=== PATIENT | female | born 1945 | race Caucasian/White ===

== ENCOUNTER 2020-10-11 09:31 | Inpatient (IN) | payer OTHER ==
[2020-10-11 10:36] LABS: BASO % 0.7 % (0-2.0); EOS % 0.9 % (0-4.5); HEMATOCRIT 30.6 % (32.4-45.2); HEMOGLOBIN 10.5 GM/dl (10.7-15.3); LYMPH % 12.3 % (8-40); MCH 30.4 pg (25.7-33.7); MCHC 34.3 g/dl (32.0-36.0); MEAN CELL VOLUME 88.6 fl (80-96); MONO % 5.6 % (3.8-10.2); NEUT % 80.5 % (42.8-82.8); PLATELET COUNT 264 10^3/uL (134-434); RBC 3.45 M/mm3 (3.60-5.2); RDW 13.1 % (11.6-15.6); WHITE BLOOD COUNT 13.4 K/mm3 (4.0-10.8)
[2020-10-11 11:04] LABS: ACTIVATED PTT 23.5 SECONDS (25.2-36.5); ALBUMIN 3.5 g/dl (3.4-5.0); BILIRUBIN,TOTAL 0.7 mg/dl (0.2-1); CREATININE 0.8 mg/dl (0.55-1.3); TOT PROT 6.6 g/dl (6.4-8.2)
[2020-10-11 11:08] LABS: INR 0.96 (0.82-1.09); PROTHROMBIN TIME (PATIENT) 10.8 SEC (10.2-13.0)
[2020-10-11] MEDS ORDERED: SODIUM CHLORIDE 0.9% 1000 ML INFUS.BAG IV ONE (11:47)
[2020-10-11] MEDS ORDERED: SODIUM CHLORIDE 1,000 ML IV SCH (15:00)
[2020-10-11] MEDS ORDERED: SODIUM CHLORIDE 500 ML IV STA (15:18)
[2020-10-11 16:45] VITALS: BMI 18.6
[2020-10-11] MEDS: INSULIN SLIDING SCALE (NOVOLOG) 1 VIAL SQ SCH ×2 (17:10→21:13)
[2020-10-12] MEDS: INSULIN SLIDING SCALE (NOVOLOG) 1 VIAL SQ SCH ×4 (06:23→22:14)
[2020-10-12 08:18] LABS: EOS % 0.7 % (0-4.5); HEMATOCRIT 17.9 % (32.4-45.2); LYMPH % 16.5 % (8-40); MCH 29.7 pg (25.7-33.7); MCHC 33.5 g/dl (32.0-36.0); MEAN CELL VOLUME 88.8 fl (80-96); MEAN PLT VOLUME 7.9 fl (7.5-11.1); MONO % 6.5 % (3.8-10.2); NEUT % 75.3 % (42.8-82.8); PLATELET COUNT 225 10^3/uL (134-434); RBC 2.01 M/mm3 (3.60-5.2); RDW 13.4 % (11.6-15.6); WHITE BLOOD COUNT 8.8 K/mm3 (4.0-10.8)
[2020-10-12 08:20] LABS: ALBUMIN 2.6 g/dl (3.4-5.0); BILIRUBIN,TOTAL 0.6 mg/dl (0.2-1); CALCIUM 7.9 mg/dl (8.5-10); CREATININE 0.7 mg/dl (0.55-1.3); MAGNESIUM 1.7 mg/dL (1.8-2.4); TOT PROT 4.7 g/dl (6.4-8.2)
[2020-10-12] MEDS ORDERED: MAGNESIUM SULF 50% (8.12 MEQ/2 ML-1 GM VIAL) IVPB ONE (09:42)
[2020-10-12] MEDS ORDERED: MAGNESIUM SULFATE IN WATER 2 GM/50 ML IVPB IVPB ONE (10:00)
[2020-10-12] MEDS ORDERED: LOSARTAN POTASSIUM 50 MG TABLET PO SCH (10:00)
[2020-10-12] MEDS ORDERED: PANTOPRAZOLE SODIUM 80 MG in SODIUM CHLORIDE 100 ML IVPB SCH (11:30)
[2020-10-12] MEDS ORDERED: SODIUM CHLORIDE 1,000 ML IV SCH (15:43)
[2020-10-12] MEDS ORDERED: ACETAMINOPHEN 325 MG TABLET (FP) PO PRN (16:08)
[2020-10-12] MEDS ORDERED: ACETAMINOPHEN 1000 MG/100 ML VIAL (NON FORMULARY) IVPB PRN (17:52)
[2020-10-12 18:34] LABS: BASO % 0.4 % (0-2.0); EOS % 0.2 % (0-4.5); HEMATOCRIT 19.9 % (32.4-45.2); MCHC 33.5 g/dl (32.0-36.0); MEAN CELL VOLUME 89.5 fl (80-96); MEAN PLT VOLUME 7.9 fl (7.5-11.1); MONO % 8.3 % (3.8-10.2); NEUT % 76.1 % (42.8-82.8); PLATELET COUNT 193 10^3/uL (134-434); RBC 2.22 M/mm3 (3.60-5.2); RDW 13.5 % (11.6-15.6); WHITE BLOOD COUNT 13.1 K/mm3 (4.0-10.0)
[2020-10-12 18:48] LABS: HEMOGLOBIN 6.7 GM/dL (10.7-15.3)
[2020-10-12] MEDS ORDERED: ACETAMINOPHEN 1000 MG/100 ML VIAL (NON FORMULARY) IVPB ONE (19:27)
[2020-10-12] MEDS: SODIUM CHLORIDE 1,000 ML IV SCH (20:16)
[2020-10-12 21:44] LABS: BASO % 0.3 % (0-2.0); EOS % 0.2 % (0-4.5); HEMATOCRIT 18.2 % (32.4-45.2); LYMPH % 16.7 % (8-40); MCHC 33.3 g/dl (32.0-36.0); MEAN CELL VOLUME 89.9 fl (80-96); MONO % 8.8 % (3.8-10.2); PLATELET COUNT 206 10^3/uL (134-434); RBC 2.03 M/mm3 (3.60-5.2); RDW 13.7 % (11.6-15.6)
[2020-10-12 21:49] LABS: HEMOGLOBIN 6.1 GM/dL (10.7-15.3)
[2020-10-12 21:53] LABS: INR 1.03 (0.83-1.09); PROTHROMBIN TIME (PATIENT) 12.6 SEC (9.7-13.0)
[2020-10-12 21:56] LABS: ACTIVATED PTT 22.8 SECONDS (25.2-36.5)
[2020-10-12] MEDS: PANTOPRAZOLE SODIUM 40 MG VIAL IVPUSH SCH (22:14)
[2020-10-13] MEDS ORDERED: ACETAMINOPHEN 1000 MG/100 ML VIAL (NON FORMULARY) IVPB PRN (01:30)
[2020-10-13] MEDS: INSULIN SLIDING SCALE (NOVOLOG) 1 VIAL SQ SCH ×3 (06:19→18:17)
[2020-10-13 06:31] LABS: URINE APPEARANCE CLEAR; URINE BILIRUBIN NEGATIVE (NEGATIVE); URINE COLOR YELLOW; URINE GLUCOSE (UA) 3+ (NEGATIVE); URINE KETONE 2+ (NEGATIVE); URINE LEUK ESTERASE NEGATIVE (NEGATIVE); URINE NITRITE NEGATIVE (NEGATIVE); URINE PROTEIN NEGATIVE (NEGATIVE)
[2020-10-13 07:19] LABS: BASO % 0.3 % (0-2.0); EOS % 0.5 % (0-4.5); HEMATOCRIT 25.9 % (32.4-45.2); HEMOGLOBIN 8.8 GM/dL (10.7-15.3); LYMPH % 16.2 % (8-40); MCH 29.6 pg (25.7-33.7); MEAN CELL VOLUME 87.2 fl (80-96); MEAN PLT VOLUME 7.8 fl (7.5-11.1); MONO % 10.6 % (3.8-10.2); NEUT % 72.4 % (42.8-82.8); PLATELET COUNT 164 10^3/uL (134-434); RBC 2.97 M/mm3 (3.60-5.2); RDW 14.7 % (11.6-15.6); WHITE BLOOD COUNT 12.7 K/mm3 (4.0-10.0)
[2020-10-13] MEDS: PANTOPRAZOLE SODIUM 40 MG VIAL IVPUSH SCH (10:24)
[2020-10-13 15:17] LABS: BASO % 0.4 % (0-2.0); EOS % 0.2 % (0-4.5); HEMATOCRIT 23.5 % (32.4-45.2); HEMOGLOBIN 7.7 GM/dL (10.7-15.3); MCH 28.8 pg (25.7-33.7); MCHC 32.8 g/dl (32.0-36.0); MEAN CELL VOLUME 87.7 fl (80-96); MEAN PLT VOLUME 8.6 fl (7.5-11.1); MONO % 6.9 % (3.8-10.2); NEUT % 80.5 % (42.8-82.8); PLATELET COUNT 182 10^3/uL (134-434); RBC 2.68 M/mm3 (3.60-5.2); RDW 15.3 % (11.6-15.6); WHITE BLOOD COUNT 15.4 K/mm3 (4.0-10.0)
[2020-10-13] MEDS: SODIUM CHLORIDE 1,000 ML IV SCH (18:15)
[2020-10-13 18:57] LABS: BASO % 0.3 % (0-2.0); EOS % 0.2 % (0-4.5); HEMOGLOBIN 7.4 GM/dL (10.7-15.3); LYMPH % 15.5 % (8-40); MCH 29.2 pg (25.7-33.7); MCHC 33.6 g/dl (32.0-36.0); MEAN PLT VOLUME 8.1 fl (7.5-11.1); MONO % 6.9 % (3.8-10.2); NEUT % 77.1 % (42.8-82.8); PLATELET COUNT 184 10^3/uL (134-434); RBC 2.53 M/mm3 (3.60-5.2); RDW 15.2 % (11.6-15.6); WHITE BLOOD COUNT 15.4 K/mm3 (4.0-10.0)
[2020-10-13 21:42] LABS: HEMATOCRIT 19.5 % (32.4-45.2); MCH 29.6 pg (25.7-33.7); MCHC 34.2 g/dl (32.0-36.0); MEAN CELL VOLUME 86.6 fl (80-96); MEAN PLT VOLUME 7.9 fl (7.5-11.1); PLATELET COUNT 161 10^3/uL (134-434); RBC 2.26 M/mm3 (3.60-5.2); RDW 15.3 % (11.6-15.6); WHITE BLOOD COUNT 13.9 K/mm3 (4.0-10.0)
[2020-10-13 21:52] LABS: HEMOGLOBIN 6.7 GM/dL (10.7-15.3)
[2020-10-14] MEDS: SODIUM CHLORIDE 1,000 ML IV SCH ×2 (05:38→16:00)
[2020-10-14] MEDS: INSULIN SLIDING SCALE (NOVOLOG) 1 VIAL SQ SCH ×3 (06:14→16:58)
[2020-10-14 07:07] LABS: BASO % 0.4 % (0-2.0); HEMATOCRIT 22.1 % (32.4-45.2); HEMOGLOBIN 7.6 GM/dL (10.7-15.3); LYMPH % 21.9 % (8-40); MCHC 34.3 g/dl (32.0-36.0); MEAN CELL VOLUME 87.7 fl (80-96); MEAN PLT VOLUME 7.8 fl (7.5-11.1); MONO % 8.6 % (3.8-10.2); NEUT % 67.1 % (42.8-82.8); PLATELET COUNT 141 10^3/uL (134-434); RBC 2.52 M/mm3 (3.60-5.2); RDW 15.1 % (11.6-15.6); WHITE BLOOD COUNT 11.6 K/mm3 (4.0-10.0)
[2020-10-14 07:24] LABS: CALCIUM 7.8 mg/dL (8.5-10.1)
[2020-10-14 07:26] LABS: ALBUMIN 2.5 g/dl (3.4-5.0); BLOOD UREA NITROGEN 17.7 mg/dL (7-18); MAGNESIUM 1.8 mg/dL (1.8-2.4)
[2020-10-14 07:29] LABS: CREATININE 0.5 mg/dL (0.55-1.3); PHOSPHOROUS 2.3 mg/dL (2.5-4.9)
[2020-10-14 07:30] LABS: BILIRUBIN,TOTAL 0.4 mg/dL (0.2-1); TOT PROT 4.6 g/dl (6.4-8.2)
[2020-10-14] MEDS: PANTOPRAZOLE SODIUM 40 MG VIAL IVPUSH SCH (10:07)
[2020-10-14 12:29] LABS: HEMATOCRIT 22.1 % (32.4-45.2); HEMOGLOBIN 7.5 GM/dL (10.7-15.3); MCHC 34.1 g/dl (32.0-36.0); MEAN CELL VOLUME 88.1 fl (80-96); MEAN PLT VOLUME 7.6 fl (7.5-11.1); PLATELET COUNT 148 10^3/uL (134-434); RBC 2.51 M/mm3 (3.60-5.2); WHITE BLOOD COUNT 11.7 K/mm3 (4.0-10.0)
[2020-10-14] MEDS ORDERED: PEG 3350/NA SULF BICARB CL/KCL 4000 ML SOLN.RECON PO ONE (14:00)
[2020-10-14] MEDS ORDERED: BISACODYL 5 MG TABLET.DR (FP) PO ONE (20:00)
[2020-10-14 21:53] LABS: BASO % 0.5 % (0-2.0); EOS % 2.4 % (0-4.5); HEMATOCRIT 21.8 % (32.4-45.2); HEMOGLOBIN 7.4 GM/dL (10.7-15.3); LYMPH % 22.5 % (8-40); MCH 29.7 pg (25.7-33.7); MEAN CELL VOLUME 87.4 fl (80-96); MEAN PLT VOLUME 7.7 fl (7.5-11.1); MONO % 9.6 % (3.8-10.2); PLATELET COUNT 156 10^3/uL (134-434); RBC 2.49 M/mm3 (3.60-5.2); RDW 14.6 % (11.6-15.6); WHITE BLOOD COUNT 11.1 K/mm3 (4.0-10.0)
[2020-10-15] MEDS: SODIUM CHLORIDE 1,000 ML IV SCH ×2 (06:17→18:16)
[2020-10-15] MEDS: INSULIN SLIDING SCALE (NOVOLOG) 1 VIAL SQ SCH ×3 (06:18→17:29)
[2020-10-15 08:46] LABS: BASO % 0.3 % (0-2.0); EOS % 2.8 % (0-4.5); HEMATOCRIT 21.8 % (32.4-45.2); HEMOGLOBIN 7.8 GM/dL (10.7-15.3); LYMPH % 21.3 % (8-40); MCH 31.2 pg (25.7-33.7); MCHC 35.6 g/dl (32.0-36.0); MEAN CELL VOLUME 87.6 fl (80-96); MEAN PLT VOLUME 7.9 fl (7.5-11.1); MONO % 9.5 % (3.8-10.2); NEUT % 66.1 % (42.8-82.8); PLATELET COUNT 173 10^3/uL (134-434); RBC 2.49 M/mm3 (3.60-5.2); RDW 14.6 % (11.6-15.6); WHITE BLOOD COUNT 9.8 K/mm3 (4.0-10.0)
[2020-10-15 08:53] LABS: INR 1.03 (0.83-1.09); PROTHROMBIN TIME (PATIENT) 12.4 SEC (9.7-13.0)
[2020-10-15 09:11] LABS: ALBUMIN 2.9 g/dl (3.4-5.0); BLOOD UREA NITROGEN 5.5 mg/dL (7-18); CALCIUM 7.9 mg/dL (8.5-10.1)
[2020-10-15 09:12] LABS: MAGNESIUM 1.4 mg/dL (1.8-2.4)
[2020-10-15 09:14] LABS: CREATININE 0.5 mg/dL (0.55-1.3); PHOSPHOROUS 2.2 mg/dL (2.5-4.9)
[2020-10-15 09:15] LABS: BILIRUBIN,TOTAL 0.4 mg/dL (0.2-1); TOT PROT 5.4 g/dl (6.4-8.2)
[2020-10-15] MEDS: PANTOPRAZOLE SODIUM 40 MG VIAL IVPUSH SCH (10:50)
[2020-10-15 14:34] LABS: BASO % 0.4 % (0-2.0); EOS % 1.5 % (0-4.5); HEMATOCRIT 23.8 % (32.4-45.2); HEMOGLOBIN 8.2 GM/dL (10.7-15.3); MCH 30.5 pg (25.7-33.7); MCHC 34.5 g/dl (32.0-36.0); MEAN CELL VOLUME 88.3 fl (80-96); MEAN PLT VOLUME 7.5 fl (7.5-11.1); MONO % 9.4 % (3.8-10.2); NEUT % 70.7 % (42.8-82.8); PLATELET COUNT 201 10^3/uL (134-434); RBC 2.69 M/mm3 (3.60-5.2); RDW 14.8 % (11.6-15.6); WHITE BLOOD COUNT 10.1 K/mm3 (4.0-10.0)
[2020-10-15] MEDS ORDERED: MAGNESIUM SULF 50% (8.12 MEQ/2 ML-1 GM VIAL) IVPB ONE (14:47)
[2020-10-15] MEDS ORDERED: POTASSIUM PHOSPHATE 15 MM in SODIUM CHLORIDE 250 ML IVPB ONE (15:15)
[2020-10-15] MEDS ORDERED: INSULIN (NOVOLOG) ASPART 100 UNITS/ML 10ML VIAL ONE (17:07)
[2020-10-15 19:30] LABS: BASO % 0.2 % (0-2.0); EOS % 1.4 % (0-4.5); HEMATOCRIT 22.7 % (32.4-45.2); HEMOGLOBIN 7.9 GM/dL (10.7-15.3); LYMPH % 21.3 % (8-40); MCH 30.8 pg (25.7-33.7); MCHC 34.6 g/dl (32.0-36.0); MEAN PLT VOLUME 7.8 fl (7.5-11.1); MONO % 8.5 % (3.8-10.2); NEUT % 68.6 % (42.8-82.8); PLATELET COUNT 191 10^3/uL (134-434); RBC 2.55 M/mm3 (3.60-5.2); RDW 14.7 % (11.6-15.6); WHITE BLOOD COUNT 10.2 K/mm3 (4.0-10.0)
[2020-10-16] MEDS: INSULIN SLIDING SCALE (NOVOLOG) 1 VIAL SQ SCH ×2 (06:16→12:07)
[2020-10-16 07:57] LABS: HEMATOCRIT 21.2 % (32.4-45.2); HEMOGLOBIN 7.4 GM/dL (10.7-15.3); MCH 31.2 pg (25.7-33.7); MCHC 34.8 g/dl (32.0-36.0); MEAN CELL VOLUME 89.7 fl (80-96); MEAN PLT VOLUME 8.1 fl (7.5-11.1); PLATELET COUNT 197 10^3/uL (134-434); RBC 2.36 M/mm3 (3.60-5.2); RDW 14.7 % (11.6-15.6); WHITE BLOOD COUNT 9.7 K/mm3 (4.0-10.0)
[2020-10-16 08:11] LABS: CALCIUM 7.8 mg/dL (8.5-10.1)
[2020-10-16 08:12] LABS: ALBUMIN 2.7 g/dl (3.4-5.0); BLOOD UREA NITROGEN 8.2 mg/dL (7-18); MAGNESIUM 1.7 mg/dL (1.8-2.4)
[2020-10-16 08:15] LABS: CREATININE 0.6 mg/dL (0.55-1.3); PHOSPHOROUS 2.9 mg/dL (2.5-4.9)
[2020-10-16 08:17] LABS: BILIRUBIN,TOTAL 0.3 mg/dL (0.2-1); TOT PROT 5.1 g/dl (6.4-8.2)
[2020-10-16 08:56] VITALS: BP 138/73; PULSE 104; TEMP 98.2
[2020-10-16] MEDS: SODIUM CHLORIDE 1,000 ML IV SCH (08:56)
[2020-10-16] MEDS: PANTOPRAZOLE SODIUM 40 MG VIAL IVPUSH SCH (09:37)
[2020-10-16] MEDS ORDERED: LOSARTAN POTASSIUM 50 MG TABLET PO SCH (10:00)
[2020-10-16] MEDS ORDERED: LOSARTAN POTASSIUM 50 MG TABLET PO ONE (10:45)
[2020-10-16] MEDS ORDERED: VACC MRNA IM ONE (12:22)
[2020-10-16] MEDS ORDERED: [UNRECOGNIZED DRUG - OTHER] IM ONE (12:22)
== END 2020-10-16 15:05 | disposition home or self-care (01) | DRG 244 ==
LOC: FER 09:31 → FM/S 13:46 → J6S 10-12 15:14 → J4W 10-12 18:49
PROVIDERS: ADMIT Internal Medicine; ATTEND Internal Medicine
PROC: 30233N1 Transfusion of Nonautologous Red Blood Cells into Peripheral Vein, Percutaneous Approach (ICD-10-PCS; 2020-10-12)
PROC: 0DJD8ZZ Inspection of Lower Intestinal Tract, Via Natural or Artificial Opening Endoscopic (ICD-10-PCS; principal; 2020-10-15 13:15)
DX: K57.91 Diverticulosis of intestine, part unspecified, without perforation or abscess with bleeding (principal); I10 Essential (primary) hypertension; E11.9 Type 2 diabetes mellitus without complications; Z79.84 Long term (current) use of oral hypoglycemic drugs; D62 Acute posthemorrhagic anemia; K64.8 Other hemorrhoids
CPT/HCPCS: 36415; 36430; 71045-TC-FY; 74174-TC; 74177-TC; 80048; 80053; 81003; 82272; 82962; 83605; 83735; 84100; 85025; 85027; 85610; 85730; 86850; 86900; 86901; 86922; 87040; 87045; 87046; 87077; 87086; 87186; 97116-GP; 97162-GP; 99285-25; C9803; P9058; Q9967; U0003; U0005